=== PATIENT | female | born 1980 | race Caucasian/White ===

== ENCOUNTER 2025-03-01 10:45 | Emergency (ER) | payer OTHER ==
[~2025-03-01] VITALS: Ht 157.5 cm; Wt 81.2 kg
[2025-03-01] MEDS ORDERED: Ketorolac Tromethamine 30mg Vial IV ONE (11:00)
[2025-03-01] MEDS ORDERED: Ondansetron HCl 2 MG / ML 2ML Vial IV ONE (11:00)
[2025-03-01] MEDS ORDERED: Morphine Sulfate 4 MG/1 ML Injection IV ONE (11:00)
[2025-03-01] MEDS ORDERED: Dexamethasone Sod Phos 10 MG/ML 1ML VIAL IV ONE (16:15)
[2025-03-01] MEDS ORDERED: METPRE4DP PO (16:32)
== END 2025-03-01 16:36 | disposition home or self-care (01) ==
LOC: ER 10:45
DX: M51.16 Intervertebral disc disorders with radiculopathy, lumbar region (principal); M48.061 Spinal stenosis, lumbar region without neurogenic claudication; F17.290 Nicotine dependence, other tobacco product, uncomplicated; Z88.2 Allergy status to sulfonamides; Z88.1 Allergy status to other antibiotic agents
CPT/HCPCS: 72148; 96374; 96375; 99283-25; J1100; J1885; J2270; J2405